=== PATIENT | female | born 1995 | race African-American/Black ===

== ENCOUNTER 2016-12-24 09:35 | Emergency (ER) | payer BC ==
[~2016-12-24] VITALS: Ht 154.9 cm; Wt 52.5 kg
[2016-12-24 09:38] VITALS: Ht 154.9 cm; Wt 52.5 kg
[2016-12-24] MEDS ORDERED: metroNIDAZOLE 500 MG TAB PO STA (10:07)
[2016-12-24] MEDS ORDERED: AZITHROMYCIN 250 MG TAB PO STA (10:07)
[2016-12-24] MEDS ORDERED: CEFTRIAXONE 250 MG INJ IM STA (10:07)
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
[2016-12-24] MEDS ORDERED: LEVONORGESTREL 0.75 MG PO ONE (10:30)
[2016-12-24] MEDS ORDERED: LEVONORGESTREL PO (10:30)
[2016-12-24 10:38] LABS: ADD UMIC YES; URINE BILIRUBIN (Dip) NEGATIVE (NEGATIVE); URINE BLOOD (Dip) 1+ (NEGATIVE); URINE COLOR YELLOW (YELLOW); URINE GLUCOSE (Dip) NEGATIVE (NEGATIVE); URINE KETONES (Dip) 15 (NEGATIVE); URINE LEUKOCYTE ESTERASE (Dip) NEGATIVE (NEGATIVE); URINE NITRITE (Dip) NEGATIVE (NEGATIVE); URINE TOTAL PROTEIN (Dip) 1+ (NEGATIVE); URINE UROBILINOGEN (Dip) 0.2 E.U./dL (0.1-1.0)
[2016-12-24 10:47] LABS: MUCUS,URINE FEW; SQUAMOUS EPITHELIAL CELL,UR FEW
[2016-12-24] MEDS ORDERED: LIDOCAINE 1% (MDV) 20 ML INJ ONE (10:49)
[2016-12-24] MEDS ORDERED: LIDOCAINE 1% (MDV) 20 ML INJ IM ONE (11:00)
== END 2016-12-24 13:21 | disposition home or self-care (01) ==
LOC: E/R 09:35
DX: R10.2 Pelvic and perineal pain (principal)
CPT/HCPCS: 81001; 87070; 87086; 87220; 96372; J0696; Z7502; Z7610; 81003

== ENCOUNTER 2017-03-17 12:38 | Emergency (ER) | payer BC ==
[~2017-03-17] VITALS: Ht 152.4 cm; Wt 54.0 kg
[2017-03-17 12:45] VITALS: Ht 152.4 cm; Wt 54.0 kg
[2017-03-17 14:08] LABS: ADD UMIC YES; UR BILIRUBIN (Dip) NEGATIVE (NEGATIVE); UR BLOOD (Dip) TRACE (NEGATIVE); UR CLARITY CLEAR (CLEAR); UR COLOR LT. YELLOW (YELLOW); UR GLUCOSE (Dip) NEGATIVE (NEGATIVE); UR KETONES (Dip) NEGATIVE (NEGATIVE); UR LEUKOCYTE ESTERASE (Dip) TRACE (NEGATIVE); UR NITRITE (Dip) NEGATIVE (NEGATIVE); UR TOTAL PROTEIN (Dip) TRACE (NEGATIVE); UR UROBILINOGEN (Dip) 0.2 E.U./dL (0.1-1.0)
[2017-03-17 14:15] LABS: UR BACTERIA FEW; URINE RBCS 0-2 /HPF (0)
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
--- NOTE | 2017-03-17 14:50 | RADRPT ---
PROCEDURE: US Pelvis. CLINICAL INDICATION: Pelvic pain TECHNIQUE: Multiple sonographic images of the pelvis were obtained utilizing a transabdominal and endovaginal technique. The images were reviewed on a PACS workstation. COMPARISON: None. FINDINGS: The uterus is visualized and measures 6.5 x 3.8 x 4.2 cm. The endometrial echo complex measures 6.8 mm thickness. No uterine masses are identified. The right ovary measures 4.7 x 2.9 x 3.1 cm . The left ovary measures 4.3 x 2.7 x 3.0 cm. Multiple follicles are seen on both ovaries. The ovaries demonstrate normal vascularity.. Small amount of free fluid is seen in the cul-de-sac. IMPRESSION: Small amount of nonspecific free fluid in the cul-de-sac. This could be physiologic. Otherwise, unremarkable exam. If further characterization of the organs of the pelvis is needed MRI should be considered. RPTAT: AA .Miguel Angel Abreu MD, MD Date Time Electronically viewed and signed by .Miguel Angel Abreu MD, on 03/17/2017 14:50 .P/
[2017-03-17] MEDS ORDERED: LIDOCAINE 1% (MDV) 20 ML INJ SC ONE (15:30)
[2017-03-17] MEDS ORDERED: CEFTRIAXONE 250 MG INJ IM ONE (15:30)
[2017-03-17] MEDS ORDERED: AZITHROMYCIN 250 MG TAB PO ONE (15:30)
[2017-03-17] MEDS ORDERED: IBUP-1542 PO (15:37)
== END 2017-03-17 16:53 | disposition home or self-care (01) ==
LOC: FTE 12:38
DX: R10.2 Pelvic and perineal pain (principal)
CPT/HCPCS: 76830; 76856; 81001; 84703; 87591; J0696; Z7610; 96372

== ENCOUNTER 2018-02-27 19:29 | Emergency (ER) | END 2018-02-27 23:30 | disposition home or self-care (01) ==

== ENCOUNTER 2018-04-30 21:57 | Emergency (ER) | END 2018-05-01 03:40 | disposition home or self-care (01) ==

== ENCOUNTER 2018-12-05 13:34 | Emergency (ER) | payer BC ==
[~2018-12-05] VITALS: Ht 157.5 cm; Wt 65.7 kg
[~2018-12-05 13:34] MED LIST: HYDR-4011 PO; IBUP-1542 PO; NAPR-985 PO
[2018-12-05 13:39] VITALS: Ht 157.5 cm; Wt 65.7 kg
[2018-12-05] MEDS ORDERED: AZITHROMYCIN 250 MG TAB PO ONE (16:30)
[2018-12-05] MEDS ORDERED: CEFTRIAXONE 250 MG INJ IM ONE (16:30)
[2018-12-05] MEDS ORDERED: LIDOCAINE 1% (MPF) 5 ML VIAL INFIL ONE (16:30)
[2018-12-05] MEDS ORDERED: EMTR1TAB11 PO (16:44)
[2018-12-05 17:06] VITALS: BP 129/71; PULSE 77; RESP 18
--- NOTE | 2018-12-05 19:08 | ERD ---
ER Documentation Chief Complaint Chief Complaint IN ED FOR STD PROPHYLAXIS. HPI 23 year-old [female] coming in today with Chief Complaint: Unprotected sex History of Present Illness: Patient reporting unprotected sex last night after condom broke with a new partner with whom she has been dating for 1 month. Patient reports it was her first time being sexually active ever in length. Denies any associated symptoms. Patient requesting PReP; unknown status of partner is HIV status, reports partner is heterozygous and denies HIV history. Review of systems: All systems were reviewed and are negative except for what is indicated in the history of present illness. Past Medical History: [Negative for hypertension, diabetes or other medical problems]; positive surgical history for abdominal hernia repair Social History: [Patient denies tobacco, alcohol, elicit drug use] Medications: [None] Allergies: [NKDA] Social Concerns: Denies ROS All systems reviewed and are negative except as per history of present illness. Medications Home Meds Active Scripts Emtricitabine-Tenofovir* (Truvada*) 200-300 Mg Tablet, 1 TAB PO DAILY for Post- Exposure Prophylaxis for 28 Days, #28 TAB Prov:SCOTT PETE NP 12/05/18 Hydrocodone/Acetaminophen ([place] 5-325 Tablet) 1 Each Tablet, 1 TAB PO Q6H PRN for PAIN, #20 TAB Prov:KHRISMARCOS C 05/01/18 Ibuprofen* (Motrin*) 600 Mg Tab, 600 MG PO Q6, #30 TAB Prov:KHRIS,MARCOS C 05/01/18 Hydrocodone/Acetaminophen ([place] 5-325 Tablet) 1 Each Tablet, 1 TAB PO Q6H PRN for PAIN, #8 TAB Prov:CUBA,HAYDEN 02/27/18 Naproxen* (Naprosyn*) 500 Mg Tablet, 500 MG PO BID PRN for PAIN AND/OR INFLAMMATION, #20 TAB Prov:CUBA,HAYDEN 02/27/18 Ibuprofen* (Motrin*) 600 Mg Tab, 600 MG PO Q6, #30 TAB Prov:DIEGO RODRIGUEZ PA-C 03/17/17 Allergies Allergies: Coded Allergies: No Known Allergy (Unverified , 12/05/18) PMhx/Soc Hx Miscellaneous Medical Probl: Yes (depression ; ovarian cyst; on control pills) Hx Alcohol Use: No Hx Substance Use: No Hx Tobacco Use: No FmHx Family History: diabetes; No coronary disease Physical Exam Vitals Vital Signs Date Temp Pulse Resp B/P (MAP) Pulse Ox O2 O2 Flow FiO2 Time Delivery Rate 12/05/18 98.9 77 18 129/71 97 Room Air 17:06 (90) 12/05/18 98.9 82 17 128/74 99 13:39 (92) Physical Exam Const: No acute distress Head: Atraumatic Eyes: Normal Conjunctiva ENT: Normal External Ears, Nose and Mouth. Neck: Full range of motion. No meningismus. Resp: Clear to auscultation bilaterally Cardio: Regular rate and rhythm, no murmurs Abd: Soft, non tender, non distended. Normal bowel sounds Skin: No petechiae or rashes Back: No midline or flank tenderness Ext: No cyanosis, or edema Neur: Awake and alert Psych: Normal Mood and Affect Vaginal exam deferred, patient refused. Result Diagram: 12/05/18 1651 Results 24 hrs Laboratory Tests Test 12/05/18 16:50 12/05/18 16:51 12/05/18 16:52 Bedside Urine pH (LAB) 7.5 Bedside Urine Protein (LAB) 2+ Bedside Urine Glucose (UA) Negative Bedside Urine Ketones (LAB) Negative Bedside Urine Blood Trace-intact Bedside Urine Nitrite (LAB) Negative Bedside Urine Leukocyte Esterase (L Negative Sodium Level 142 mmol/L Potassium Level 4.1 mmol/L Chloride Level 106 mmol/L Carbon Dioxide Level 25 mmol/L Anion Gap 11 Blood Urea Nitrogen 13 mg/dl Creatinine 0.72 mg/dl Est Glomerular Filtrat Rate mL/min > 60 mL/min Glucose Level 90 mg/dl Calcium Level 10.0 mg/dl Total Bilirubin 0.2 mg/dl Direct Bilirubin 0.00 mg/dl Indirect Bilirubin 0.2 mg/dl Aspartate Amino Transf (AST/SGOT) 42 IU/L Alanine Aminotransferase (ALT/SGPT) 7 IU/L Alkaline Phosphatase 80 IU/L Total Protein 8.3 g/dl Albumin 4.8 g/dl Globulin 3.50 g/dl Albumin/Globulin Ratio 1.37 Hepatitis B Surface Antigen NEGATIVE Hepatitis B Surface Antibody POSITIVE Hepatitis C Antibody NEGATIVE HIV (1&2) Antibody NEGATIVE POC Beta HCG, Qualitative NEGATIVE Current Medications Medications Dose Sig/Idalmis Start Time Status Last (Trade) Ordered Route PRN Stop Time Admin Dose Reason Admin Ceftriaxone 250 mg ONCE ONCE 12/05/18 DC 12/05/18 Sodium IM 16:30 12/05/18 16:43 (Rocephin) 16:33 Lidocaine 2.1 ml ONCE ONCE 12/05/18 DC 12/05/18 (Xylocaine INFIL 16:30 12/05/18 16:43 1% (Mpf)) 16:33 1,000 mg ONCE ONCE 12/05/18 DC 12/05/18 Azithromycin PO 16:30 12/05/18 16:43 (Zithromax) 16:33 Procedures/MDM ED course includes a thorough examination and history. ED course includes labs; CBC to establish good creatinine before PReP administration, HCG to ensure not , baseline for hepatitis and HIV and syphilis. ED course includes testing for gonorrhea chlamydia; azithromycin and ceftriaxone given for prophylaxis for discharge. Low suspicion for life-threatening medical emergency at this time Otherwise healthy patient presenting with constellation of symptoms likely representing uncomplicated possible STD exposure as characterized by history, physical exam findings [lab findings]. Negative HIV, negative hepatitis C antigen, negative hepatitis be antigen, positive hepatitis B antibody, negative , CMP within normal limits. Patient verbalizes understanding of baseline labs for hepatitis and HIV and syphilis. Will need retesting at 1 month, 3-month, 6-month with PCP. Recommendation to retest for gonorrhea chlamydia in approximately 2 weeks to ensure infection is not present. Due to patient recommendation for treatment Truvada, will give prescription for 28 days. Informed to discuss with primary care doctor monitoring care while on Truvada, and plan of care once the medication of 28 days is completed. Recommended to patient to have partner tested for HIV to see if it is present, to determine if that will change her need to take Truvada. No respiratory distress, otherwise relatively well appearing and nontoxic. Patient educated on diagnoses, prescriptions [truvada] follow-up care, return precautions. Strict return precautions given for worsening condition; questions answered discharge. Disposition for discharge with followup in 2-3 days with PCP/clinic. Departure Diagnosis: Primary Impression: At risk for sexually transmitted disease due to unprotectedsex Additional Impression: Unprotected sex Condition: Stable Patient Instructions: Chlamydia, Female, Gonorrhea, Female, Std, Suspected (Culture Only), HIV-1/HIV-2 Rapid Screen Referrals: COMMUNITY CLINICS YOU HAVE RECEIVED A MEDICAL SCREENING EXAM AND THE RESULTS INDICATE THAT YOU DO NOT HAVE A CONDITION THAT REQUIRES URGENT TREATMENT IN THE EMERGENCY DEPARTMENT. FURTHER EVALUATION AND TREATMENT OF YOUR CONDITION CAN WAIT UNTIL YOU ARE SEEN IN YOUR DOCTORS OFFICE WITHIN THE NEXT 1-2 DAYS. IT IS YOUR RESPONSIBILITY TO MAKE AN APPOINTMENT FOR FOLOW-UP CARE. IF YOU HAVE A PRIMARY DOCTOR --you should call your primary doctor and schedule an appointment IF YOU DO NOT HAVE A PRIMARY DOCTOR YOU CAN CALL OUR PHYSICIAN REFERRAL HOTLINE AT IF YOU CAN NOT AFFORD TO SEE A PHYSICIAN YOU CAN CHOSE FROM THE FOLLOWING [facility] [address] [facility] [address] [facility] [facility] [address] [facility] [address] [facility] [address] [facility] [facility] [address] [facility] [facility] YOU HAVE RECEIVED A MEDICAL SCREENING EXAM AND THE RESULTS INDICATE THAT YOU DO NOT HAVE A CONDITION THAT REQUIRES URGENT TREATMENT IN THE EMERGENCY DEPARTMENT. FURTHER EVALUATION AND TREATMENT OF YOUR CONDITION CAN WAIT UNTIL YOU ARE SEEN IN YOUR DOCTORS OFFICE WITHIN THE NEXT 1-2 DAYS. IT IS YOUR RESPONSIBILITY TO MAKE AN APPOINTMENT FOR FOLOW-UP CARE. IF YOU HAVE A PRIMARY DOCTOR --you should call your primary doctor and schedule and appointment IF YOU DO NOT HAVE A PRIMARY DOCTOR YOU CAN CALL OUR PHYSICIAN REFERRAL HOTLINE AT . IF YOU CAN NOT AFFORD TO SEE A PHYSICIAN YOU CAN CHOSE FROM THE FOLLOWING [facility] INSTITUTIONS: [facility] [address] [place] [address] [facility] [address] [place] [address] [facility] + [facility] [address] [place] [address] [facility] Hours: 8:00 am - 5:00 pm Additional Instructions: Call your primary care doctor TOMORROW for an appointment during the next 1 WEEK.Tell the trade union secretary that you were referred from this facility.See the doctor sooner or return here if your condition worsens before your appointment time. Today we tested you for gonorrhea, chlamydia; prophylaxis treatment was given in the ER for these STDs, recommendation for a retest in 2 weeks to ensure her infection is not present. We also tested you for hepatitis B, hepatitis C, HIV, syphilis; this blood work will establish a baseline to ensure you do not have these infections at this current moment, you will need retesting at month 1, month 3, month 6 to ensure infection is not present. Per your request, prescription for PREP has been given. Take the medication as prescribed for 1 month. You will need follow-up with your primary care doctor/clinic if you decide to start this regimen in about a week, and then immediately after you finish the 28-day course to determine if you need the medication for longer. I strongly encourage you to have your partner to get tested as well; if they currently do not have HIV or risk factors, you may not need this PREP therapy, as discussed. SCOTT PETE NP Dec 05, 2018 19:08
== END 2018-12-05 17:07 | disposition home or self-care (01) ==
LOC: FTE 13:34
DX: Z11.3 Encounter for screening for infections with a predominantly sexual mode of transmission (principal)
CPT/HCPCS: 80053; 81003; 81025; 86592; 86703; 86706; 86803; 87340; 96372; 99284; J0696; Z7610